=== PATIENT | female | born 1995 | race Caucasian/White ===

== ENCOUNTER 2023-01-14 19:21 | Outpatient (REF) | payer OTHER, SELFPAY ==
[2023-01-18 00:07] LABS: Age Gdln ACOG Testing Note (.); IGP, rfx Aptima HPV ASCU Note (.)
== END 2023-01-14 19:22 | disposition home or self-care (01) ==
LOC: LAB 19:21
PROVIDERS: PCP Physician Assistant; Visit Provider Physician Assistant
DX: Z01.419 Encounter for gynecological examination (general) (routine) without abnormal findings (principal)
CPT/HCPCS: G0145

== ENCOUNTER 2023-02-17 17:37 | Outpatient (OUT) | payer OTHER, SELFPAY ==
--- NOTE | 2023-02-17 17:49 | US_ITS ---
[address] [address] Patient Name: JACY LOAIZA MRN: [id number] date: 1995 Sex: F Assigned Patient Location: Current Patient Location: Accession/Order Number: [id number] Exam Date: 02/17/2023 17:50 Report Date: 02/18/2023 15:13 At the request of: ISAI FLANAGAN Procedure: US OB growth EXAMINATION: US OB growth HISTORY: MATERNAL HYPERTENSION COMPARISON: No relevant comparison available. FINDINGS: Heart Rate: 150.0 bpm Number: 1.0 Position: Breech Amniotic Fluid Volume: 10.1 cm Maximum Vertical Pocket: 3.0 cm BIOMETRY: BPD: 6.0 cm cm; 24 weeks 2 days HC: 22.6 cmcm; 24 weeks 4 days AC: 18.7 cm cm; 23 weeks 3 days FL: 4.3 cm cm; 24 weeks 0 days EFW: 631.6 grams; 33% FL/AC: 22.9 FL/BPD: 71.9 HC/AC: 1.2 GESTATIONAL AGE: Age by EDC: 24 weeks 0 days ANA by EDC: 06/09/2023 Age by US: 24 weeks 1 day ANA by US: 06/08/2023 US/US OB growth IMPRESSION: 1. Single live intrauterine with growth detailed above. Electronically authenticated by: RACHELLE BOLANOS Date: 02/18/2023 15:13
== END 2023-02-17 17:38 | disposition home or self-care (01) ==
LOC: US 17:38
PROVIDERS: PCP Physician Assistant; Visit Provider Obstetrics & Gynecology
DX: Z34.92 Encounter for supervision of normal pregnancy, unspecified, second trimester (principal)
CPT/HCPCS: 76816

== ENCOUNTER 2023-02-22 08:05 | Outpatient (OUT) | payer OTHER, SELFPAY ==
[2023-02-22 09:22] LABS: Basophils Percent Auto 0.2 % (0.2-2.0); Eosinophils Absolute Auto 0.2 10^3/uL (0.0-0.7); Eosinophils Percent Auto 1.7 % (0.9-7.0); Hematocrit 37.5 % (36.0-48.0); Hemoglobin 12.8 g/dL (12.0-16.0); Immature Granulocytes Abs Auto 0.03 10^3/uL (0.00-0.03); Immature Granulocytes Pct Auto 0.3 % (0.0-0.5); Lymphocytes Absolute Auto 1.4 10^3/uL (1.2-3.8); Lymphocytes Percent Auto 14.4 % (20.5-60.0); Mean Corpuscular HGB Conc 34.1 g/dL (29.9-35.2); Mean Corpuscular Hemoglobin 29.8 pg (26.7-34.0); Mean Corpuscular Volume 87.4 fL (81.0-99.0); Mean Platelet Volume 9.7 fL (9.5-13.5); Monocytes Absolute Auto 0.5 10^3/uL (0.3-0.8); Monocytes Percent Auto 4.8 % (1.7-12.0); Neutrophils Absolute Auto 7.4 10^3/uL (1.4-6.5); Neutrophils Percent Auto 78.6 % (43.0-75.0); Platelet Count 247 10^3/uL (150-450); Red Blood Count 4.29 10^6/uL (4.20-5.40); Red Cell Distribution Width 12.5 % (11.0-15.0); White Blood Count 9.4 10^3/uL (4.0-11.0)
[2023-02-22 09:55] LABS: Glucose 1 Hour 143 mg/dL
== END 2023-02-22 08:06 | disposition home or self-care (01) ==
LOC: LAB 08:05
PROVIDERS: PCP Physician Assistant; Visit Provider Obstetrics & Gynecology
DX: Z34.92 Encounter for supervision of normal pregnancy, unspecified, second trimester (principal)
CPT/HCPCS: 36415; 82950; 85025

== ENCOUNTER 2023-03-01 08:02 | Outpatient (OUT) | payer OTHER, SELFPAY ==
[2023-03-01 08:17] LABS: Glucose Fasting 90 mg/dL (74-106)
[2023-03-01 10:28] LABS: Glucose 1 Hour 164 mg/dL
[2023-03-01 11:14] LABS: Glucose 2 Hour 134 mg/dL
[2023-03-01 12:17] LABS: Glucose 3 Hour 71 mg/dL
== END 2023-03-01 08:03 | disposition home or self-care (01) ==
PROVIDERS: PCP Physician Assistant; Visit Provider Obstetrics & Gynecology
DX: E74.39 Other disorders of intestinal carbohydrate absorption (principal)
CPT/HCPCS: 36415; 82951; 82952

== ENCOUNTER 2023-03-10 17:58 | Outpatient (OUT) | payer OTHER, SELFPAY ==
--- NOTE | 2023-03-10 18:05 | US_ITS ---
[address] [address] Patient Name: JACY LOAIZA MRN: [id number] date: 1995 Sex: F Assigned Patient Location: US Current Patient Location: Accession/Order Number: [id number] Exam Date: 03/10/2023 18:06 Report Date: 03/11/2023 15:03 At the request of: ISAI FLANAGAN Procedure: US OB growth EXAMINATION: US OB growth HISTORY: MATERNAL HYPERTENSION COMPARISON: Ultrasound OB growth 02/17/2023 FINDINGS: Heart Rate: 150.8 bpm Number: 1.0 Position: CEPHALIC Amniotic Fluid Volume: 10.9 cm Maximum Vertical Pocket: 4.9 cm BIOMETRY: BPD: 6.9 cm cm; 27 weeks 4 days; 58% HC: 25.2 cmcm; 27 weeks 2 days; 33% AC: 22.1 cm cm; 26 weeks 4 days; 27% FL: 4.8 cm cm; 26 weeks 1 days; 13% EFW: 944.7 grams; 21% FL/AC: 21.8 FL/BPD: 70.1 HC/AC: 1.1 GESTATIONAL AGE: Age by EDC: 27 weeks 0 days ANA by EDC: 06/09/2023 Age by US: 26 weeks 6 days ANA by US: 06/10/2023 US/US OB growth IMPRESSION: 1. Single live intrauterine with growth detailed above. Electronically authenticated by: RACHELLE BOLANOS Date: 03/11/2023 15:03
== END 2023-03-10 17:59 | disposition home or self-care (01) ==
PROVIDERS: PCP Physician Assistant; Visit Provider Obstetrics & Gynecology
DX: Z34.92 Encounter for supervision of normal pregnancy, unspecified, second trimester (principal)
CPT/HCPCS: 76816

== ENCOUNTER 2023-03-28 18:56 | Outpatient (OUT) | payer OTHER, SELFPAY ==
[2023-03-28 19:07] VITALS: BP 148/91; PULSE 81
[2023-03-28 19:24] VITALS: BP 128/89; PULSE 75
== END 2023-03-28 19:40 | disposition home or self-care (01) ==
LOC: FBCO 18:57 → FBC 18:58
PROVIDERS: PCP Physician Assistant; Visit Provider Obstetrics & Gynecology
DX: O09.899 Supervision of other high risk pregnancies, unspecified trimester (principal)
CPT/HCPCS: 59025

== ENCOUNTER 2023-04-04 18:52 | Outpatient (OUT) | payer OTHER, SELFPAY ==
[2023-04-04 19:07] VITALS: BP 141/96; PULSE 83
[2023-04-04 19:10] VITALS: RESP 18; TEMP 36.8
[2023-04-04 19:53] VITALS: BP 134/91; PULSE 71
[2023-04-04 20:08] VITALS: BP 137/90; PULSE 62
[2023-04-04 20:23] VITALS: BP 147/95; PULSE 68
== END 2023-04-04 20:44 | disposition home or self-care (01) ==
LOC: FBCO 18:53 → FBC 18:55
PROVIDERS: PCP Physician Assistant; Visit Provider Obstetrics & Gynecology
DX: O09.899 Supervision of other high risk pregnancies, unspecified trimester (principal); Z3A.00 Weeks of gestation of pregnancy not specified
CPT/HCPCS: 59025; 59050

== ENCOUNTER 2023-04-07 17:59 | Outpatient (OUT) | payer OTHER, SELFPAY ==
--- NOTE | 2023-04-07 | US_ITS ---
[address] [address] Patient Name: JACY LOAIZA MRN: [id number] date: 1995 Sex: F Assigned Patient Location: US Current Patient Location: Accession/Order Number: [id number] Exam Date: 04/07/2023 18:09 Report Date: 04/09/2023 07:11 At the request of: ISAI FLANAGAN Procedure: US OB growth EXAMINATION: US OB growth HISTORY: second trimester z34.92 COMPARISON: No relevant comparison available. FINDINGS: Heart Rate: 135.0 bpm Amniotic Fluid Volume: 12.1 cm Number: 1.0 Position: Cephalic presentation, longitudinal lie Maximum Vertical Pocket: 0.8 cm cm 5.8 cm cm 2.9 cm cm 2.5 cm cm BIOMETRY: BPD: 7.5 cm cm; 30 weeks 0 days; 13% HC: 28.8 cmcm; 31 weeks 5 days, 30% AC: 25.3 cm cm; 29 weeks 4 days, 11% FL: 5.9 cm cm; 30 weeks 6 days; 30.5 % % EFW: 1527.3 grams, 3 lbs. 6 oz., 16% FL/AC: 23.3 FL/BPD: 79.0 HC/AC: 1.1 GESTATIONAL AGE: Age by EDC: 31 weeks 0 days ANA by EDC: 06/09/2023 Age by US: 30 weeks 4 days ANA by US: 06/12/2020. US/US OB growth IMPRESSION: Normal interval growth Electronically authenticated by: KAM PARADA Date: 04/09/2023 07:11
== END 2023-04-07 18:00 | disposition home or self-care (01) ==
LOC: US 17:59
PROVIDERS: PCP Physician Assistant; Visit Provider Obstetrics & Gynecology
DX: Z34.92 Encounter for supervision of normal pregnancy, unspecified, second trimester (principal)
CPT/HCPCS: 76816

== ENCOUNTER 2023-04-11 09:10 | Outpatient (OUT) | payer OTHER, SELFPAY ==
[2023-04-11] VITALS (9 sets, daily range): BP systolic 127–143; BP diastolic 84–98; PULSE 70–82; TEMP 36.9
[2023-04-11 20:28] LABS: Bilirubin Urine NEGATIVE (NEGATIVE); Blood Urine NEGATIVE (NEGATIVE); Clarity Urine CLEAR (CLEAR); Color Urine LT. YELLOW (YELLOW); Glucose Urine UA NEGATIVE (NEGATIVE); Ketones Urine NEGATIVE (NEGATIVE); Leukocyte Esterase Urine TRACE (NEGATIVE); Nitrite Urine NEGATIVE (NEGATIVE); Protein Urine NEGATIVE (NEG/TRACE); Urobilinogen Urine 0.2 EU/dL (0.2-1.0)
[2023-04-11] MEDS: ACETAMINOPHEN 325 MG TABLET 650 MG PO (20:29)
[2023-04-11 20:57] LABS: Creatinine Urine Random 28.36 mg/dL (20.00-300.00); Protein Creatinine Ratio Urine 0.21; Total Protein Urine Random <6.0 mg/dL (<=11.9)
== END 2023-04-11 21:44 | disposition home or self-care (01) ==
LOC: FBCO 19:03 → FBC 19:04
PROVIDERS: PCP Physician Assistant; Visit Provider Obstetrics & Gynecology
DX: O09.293 Supervision of pregnancy with other poor reproductive or obstetric history, third trimester (principal); Z3A.00 Weeks of gestation of pregnancy not specified
CPT/HCPCS: 59025; 81003; 82570; 84156

== ENCOUNTER 2023-04-15 19:04 | Outpatient (OUT) | payer OTHER, SELFPAY ==
[2023-04-15 19:44] VITALS: BP 138/96; PULSE 86
--- NOTE | 2023-04-15 19:53 | US_ITS ---
[address] [address] Patient Name: JACY LOAIZA MRN: [id number] date: 1995 Sex: F Assigned Patient Location: US Current Patient Location: US Accession/Order Number: [id number] Exam Date: 04/15/2023 20:00 Report Date: 04/16/2023 15:21 At the request of: ISAI FLANAGAN Procedure: US OB BPP w non-stress EXAMINATION: US OB BPP w non-stress HISTORY: HISTORY PREECLAMPSIA O09.299 COMPARISON: Ultrasound OB growth 04/07/2023 TECHNIQUE: Ultrasound biophysical profile was performed in the radiology department. BREATHING MOVEMENTS: 2.0 GROSS BODY MOVEMENTS: 2.0 TONE: 2.0 QUALITATIVE AMNIOTIC FLUID VOLUME: 2.0 PRESENTATION: CEPHALIC HEART RATE: 132.4 bpm bpm. AMNIOTIC FLUID VOLUME: 10.2 cm GESTATIONAL AGE: 32 weeks 1 days CONCLUSION: Total biophysical profile score 8.0. Electronically authenticated by: RACHELLE BOLANOS Date: 04/16/2023 15:21
== END 2023-04-15 20:22 | disposition home or self-care (01) ==
LOC: US 19:05 → FBC 19:07
PROVIDERS: PCP Physician Assistant; Visit Provider Obstetrics & Gynecology
DX: O09.293 Supervision of pregnancy with other poor reproductive or obstetric history, third trimester (principal); Z3A.32 32 weeks gestation of pregnancy
CPT/HCPCS: 76818

== ENCOUNTER 2023-06-16 08:27 | Outpatient (OUT) | payer OTHER, SELFPAY ==
--- NOTE | 2023-06-16 15:36 | PC.NURSE ---
Tracie and 7 week old son, Benton arrive for help. History taken, baby has been bottle fed since NICU admit and mom states tried every couple of days to latch to breast but shows no interest or latches for few sucks but no sustained feeding. Reviewed positioning and latching, while mom asking questions, baby latched himself while she was pointing nipple to nose. Infant maintains latch and suckling for 17 min with audible swallows. Mom tearful, happy and very surprised with infant feeding. States I promise you, he has not done this before Reassurance and support offered. Appointment for next week offered, states would like to work with baby and will call next friday with report and update, possibly making an appointment at that time. Leaves ambulatory feeling confident in ability to continue breast feeding journey.
== END 2023-06-16 13:45 | disposition home or self-care (01) ==
LOC: FBCO 08:28
PROVIDERS: PCP Physician Assistant; Visit Provider Obstetrics & Gynecology
DX: Z39.1 Encounter for care and examination of lactating mother (principal)
CPT/HCPCS: G0463

== ENCOUNTER 2025-02-03 12:23 | Outpatient (REF) | payer OTHER, SELFPAY ==
[2025-02-07 15:08] LABS: Age Gdln ACOG Testing Note (.); IGP, rfx Aptima HPV ASCU Note (.)
== END 2025-02-03 12:24 | disposition home or self-care (01) ==
LOC: LAB 12:23
PROVIDERS: PCP Physician Assistant; Visit Provider Physician Assistant
DX: Z01.419 Encounter for gynecological examination (general) (routine) without abnormal findings (principal)
CPT/HCPCS: 88175